=== PATIENT | male | born 1950 | race Asian ===

== ENCOUNTER 2016-09-19 06:11 | Day surgery (SDC) | payer OTHER ==
[2016-09-19] VITALS (11 sets, daily range): BP systolic 93–153; BP diastolic 53–83; PULSE 42–62; RESP 10–18; Ht 162.6 cm; Wt 64.0 kg
[~2016-09-19] VITALS: Ht 162.6 cm; Wt 64.0 kg
[2016-09-19] MEDS ORDERED: SOD CHLORIDE 0.9% 1,000 ML IV SCH (07:00)
[2016-09-19] MEDS ORDERED: CEFAZOLIN 2 GM/50 ML (PMX) 50 ML IVPB SCH (07:00)
[2016-09-19] MEDS ORDERED: BUPIVACAINE 0.25% (MPF) 30 ML INJ ONE (08:53)
[2016-09-19] MEDS ORDERED: PROPOFOL 60 ML ONE (09:06)
[2016-09-19] MEDS ORDERED: LIDOCAINE 2% (SDV) 5 ML INJ ONE (09:06)
[2016-09-19] MEDS ORDERED: FENTAnyl 50 MCG/ML VIAL ONE (09:07)
[2016-09-19] MEDS ORDERED: CEFAZOLIN 1 GM INJ ONE (09:16)
--- NOTE | 2016-09-19 09:43 | OPR ---
Date/Time of Note Date/Time of Note DATE: 09/19/16 TIME: 09:42 Operative Report Procedure Date: September 19, 2016 Preoperative Diagnosis back mass Postoperative Diagnosis same Operation Performed excision of back mass 8 cm incision and 8 cm mass localized adjacent tissue transfer with the use of skin flaps Surgeon: Dalton CERON Anesthesia: general Specimens back mass Dalton CERON September 19, 2016 09:43
[2016-09-19] MEDS ORDERED: BUPIVACAINE 0.25% (MPF) 30 ML INJ INJ ONE (09:47)
[2016-09-19] MEDS ORDERED: ONDANSETRON 4 MG INJ IV PRN (10:00)
[2016-09-19] MEDS ORDERED: EPHEDrine SULFATE 50 MG/5 ML SYG IV PRN (10:00)
[2016-09-19] MEDS ORDERED: hydrALAzine 20 MG INJ IV PRN (10:00)
[2016-09-19] MEDS ORDERED: FENTAnyl 50 MCG/ML VIAL IV PRN ×3 (10:00)
[2016-09-19] MEDS ORDERED: HYDROCODONE/APAP (5/325) TAB PO ONE (10:00)
[2016-09-19] MEDS ORDERED: LABETALOL HCL 20MG INJ IV PRN (10:00)
--- NOTE | 2016-09-19 10:35 | OPR ---
DATE OF OPERATION: 09/19/2016 INDICATION: This is a 66-year-old male with a back mass. He requests surgical excision. Risks, al ternatives, benefits, and personnel were discussed with the patient. Patient expressed understandin g and consents to the operation. PREOPERATIVE DIAGNOSIS: Back mass. POSTOPERATIVE DIAGNOSIS: Back mass. OPERATION PERFORMED: 1. Excision of back mass with 8 cm size incision and 8 cm size mass. 2. Localized adjacent tissue transfer with the use of skin flaps with 24 square cm defect. SURGEON: Irish Covington MD SPECIMEN: Back mass. COMPLICATIONS: None. ANESTHESIA: General. PROCEDURE: The patient was taken to the OR and prepped and draped in the usual sterile fashion. Vieira rgical timeout was performed. IV antibiotics were given. Transverse incision is made with a 10 rosalina de over the back mass. Dissection cautery was carried down to the mass and circumferentially the ma ss was excised. There was a large tissue defect. This was closed with local adjacent tissue transf er with the use skin flaps. Multilayer closure with interrupted 3-0 Vicryl and skin sofya. Local anesthesia was injected. Dry dressings were applied. Dictated By: IRISH COVINGTON MD SB/GHASSAN Conf#: [id number] DID#: [id number]
== END 2016-09-19 11:20 | disposition home or self-care (01) ==
LOC: SDS 06:11
PROVIDERS: ATTEND Surgery
DX: R22.2 Localized swelling, mass and lump, trunk (principal); D17.1 Benign lipomatous neoplasm of skin and subcutaneous tissue of trunk
CPT/HCPCS: 14000; 88307; J0690; J3010